=== PATIENT | female | born 2000 | race Two or more races ===

== ENCOUNTER 2023-09-08 14:45 | Emergency (ER) | payer BC, SELFPAY ==
[2023-09-08 14:58] VITALS: BP 138/76; PULSE 101; RESP 18; TEMP 37.1; O2SAT 100; BMI 24.8
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
[2023-09-08 15:35] LABS: Bilirubin Urine NEGATIVE (NEGATIVE); Blood Urine NEGATIVE (NEGATIVE); Clarity Urine CLEAR (CLEAR); Color Urine LT. YELLOW (YELLOW); Glucose Urine UA NEGATIVE (NEGATIVE); Ketones Urine NEGATIVE (NEGATIVE); Leukocyte Esterase Urine SMALL (NEGATIVE); Nitrite Urine NEGATIVE (NEGATIVE); Protein Urine NEGATIVE (NEG/TRACE); Specific Gravity Urine 1.015 (1.005-1.025); Urine Microscopic Indicated YES; Urobilinogen Urine 0.2 EU/dL (0.2-1.0)
[2023-09-08 15:37] LABS: HCG Qualitative Urine* NEGATIVE (NEGATIVE)
[2023-09-08 15:45] LABS: Amorphous Sediment Urine FEW; Bacteria Urine SMALL #/HPF (NONE SEEN); Cast Seen? NONE SEEN #/LPF (NONE SEEN); Crystals Seen? Seen #/HPF (None Seen); Mucus Urine NONE SEEN (NONE SEEN); RBC Urine 0-2 #/HPF (0-2); Squamous Epithelial Cell Urine FEW #/LPF (NONE/RARE); Urine Culture Indicated YES
[2023-09-08 17:08] VITALS: BP 130/61; PULSE 64; RESP 18; O2SAT 98
[2023-09-12 20:08] LABS: Neisseria gonorrhoeae, NAA Positive (Negative)
--- NOTE | 2023-09-17 14:27 | PC.NURSE ---
Attempted to return call and mailbox has not been set up at this time.
== END 2023-09-08 17:10 | disposition home or self-care (01) ==
PROVIDERS: Emergency Provider Emergency Medicine Emergency Medical Services
DX: R10.2 Pelvic and perineal pain (principal); F17.210 Nicotine dependence, cigarettes, uncomplicated
CPT/HCPCS: 81001; 84703; 87070; 87086; 87150; 87186; 87210; 87491; 87591; 99284

== ENCOUNTER 2024-09-04 11:21 | Emergency (ER) | payer BC, OTHER, SELFPAY ==
[2024-09-04 11:28] VITALS: BP 136/84; PULSE 85; TEMP 36.9; O2SAT 99; BMI 25.2
--- NOTE | 2024-09-04 11:36 | XR_ITS ---
The [address] [address] Patient Name: BALDEMAR CASANOVA MRN: [id number] date: 2000 Sex: F Assigned Patient Location: ER Current Patient Location: ED.MAIN Accession/Order Number: [id number] Exam Date: 09/04/2024 11:40 Report Date: 09/04/2024 12:22 At the request of: CORINA MACK Procedure: XR chest 2V EXAMINATION: XR chest 2V HISTORY: SOB COMPARISON: No relevant comparison available. TECHNIQUE: PA and lateral FINDINGS: LUNGS: No significant pulmonary parenchymal abnormalities. VASCULATURE: No increased pulmonary vasculature. PLEURA: No pneumothorax, effusion, or pleural thickening. CARDIAC: No cardiomegaly or cardiac silhouette abnormality. MEDIASTINUM: No visible mass or adenopathy. BONES: No fracture or visible bone lesion. OTHER: Negative. XR/XR chest 2V IMPRESSION: No acute cardiopulmonary process Electronically authenticated by: GRISELDA MARQUEZ Date: 09/04/2024 12:22
[2024-09-04 12:00] LABS: Internal Control Within Normal Limits; SARS-CoV-2 Ag NEGATIVE (NEGATIVE)
[2024-09-04 12:01] LABS: Influenza Virus A Antigen Negative; Influenza Virus B Antigen Negative; Internal Control Within Normal Limits
[2024-09-04 12:30] VITALS: BP 128/88; PULSE 78; O2SAT 98
--- OUTSIDE RECORDS SUMMARY | 2024-09-04 12:34 | XMS_ITS | CCD ---
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, NITO BLOOM Consulting Unavailabl e FAMILY, [facility] Primary Care Unavaila harrison ROLLE, DR ANTHONY Hughes Admitting Unavailabl e AQUILINO, DR ANTHONY Hughes Attending Unavailabl dima ROLLE, DR ANTHONY Hughes Consulting Unavailabl Romero Vega Attending Unavailable NO FAMILY, PHYSICIAN Primary Care Provider Unava ilable DO Jorge Luis Lucio Emergency Provider [phone] NO FAMILY, PHYSICIAN Primary Care Unavailable Jorge Luis Lucio Admitting Unavailable Jorge Luis Lucio Attending Unavailable Singh Preciado Admitting Unavailable Singh Preciado Attending Unavailable NO FAMILY, PHYSICIAN Primary Care Unavailable Medications Current Medications Medication Drug Class(es) Dates Sig (Normalized) Sig (Original) erythromycin 0.005 mg/mg ophthalmic ointment (1 source) Macrolide, Macrolide Antimicrobial Start: 03-21-2024 Erythromycin Active 1 APPLIC EYE-LEFT Every 6 hours 3.5 10 March 21, 2024 12:00am fluticasone propionate 0.05 mg/actuat metered dose nasal spray (1 source) Corticosteroid Start: 06-17-2022 take 1 spray(s) nasal route twice daily Fluticasone Propionate 50 MCG/ACT 1 spray in each nostril Nasally Twice a day for 14 days Jun, Active lidocaine hydrochloride 20 mg/ml mucous membrane topical solution (1 source) Antiarrhythmic, Amide Local Anesthetic Start: 06-17-2022 take 10 mL by mouth every three hours Lidocaine Viscous 2% 10 ml swish in mouth, gargle, and spit. DO NOT swallow every 3 hrs for 2 days Jun, Active Completed/Discontinued Medications Medication Drug Class(es) Dates Sig (Normalized) Sig (Original) amoxicillin 500 mg oral capsule (2 sources) Penicillin-class Antibacterial Start: 10-19-2023 End: 03-21-2024 take 500 mg by mouth twice daily Amoxicillin Discontinued 500 MG PO Twice daily 04 08October 19, 2023 1:00am March 21, 2024 10:06am cyclobenzaprine hydrochloride 10 mg oral tablet (4 sources) Muscle Relaxant Start: 04-20-2022 End: 09-19-2022 take 10 mg by mouth three times daily Cyclobenzaprine Discontinued 10 MG PO Three times daily April 20, 2022 12:00am September 19, 2022 12:40pm ibuprofen 600 mg oral tablet (3 sources) Nonsteroidal Anti-inflammatory Drug Start: 09-19-2022 End: 03-21-2024 take 600 mg by mouth three times daily Ibuprofen Discontinued 600 MG PO Three times daily September 19, 2022 1:50pm March 21, 2024 10:06am ketorolac tromethamine 10 mg oral tablet (4 sources) Nonsteroidal Anti-inflammatory Drug, Cyclooxygenase Inhibitor Start: 04-20-2022 End: 09-19-2022 take 10 mg by mouth every six hours Ketorolac Discontinued 10 MG PO Q6H April 20, 2022 12:00am September 19, 2022 12:40pm sulfamethoxazole 800 mg / trimethoprim 160 mg oral tablet (8 sources) Dihydrofolate Reductase Inhibitor Antibacterial, Sulfonamide Antimicrobial Start: 11-12-2019 End: 06-22-2021 take 1 tablet by mouth twice daily Sulfamethoxazole-Tr imethoprim (Bactrim Ds) 800-160 mg tablet Discontinued 1 TAB PO Twice daily 28 04November 12, 2019 1:00am June 22, 2021 2:45pm Start: 07-15-2017 End: 05-28-2019 take 1 tablet by mouth twice daily Sulfamethoxazole-Trimethoprim (Bactrim D s) 800-160 mg tablet Discontinued 1 TAB PO Twice daily July 15, 2017 12:00am May 28, 2019 5:34pm Problems Problem Classification Problem Date Documented Date Episodic/Chronic Abdominal pain (9 sources) Pain in pelvis; Translations: [Pelvic and perineal pain] Onset: 03-05-2023 06-01-2020 Episodic E Codes: Cut/pierceb (1 source) Contact with other sharp object(s), not elsewhere classified, initial encounter; Translations: [[facility] NOT [facility] CLASS INI] Onset: 01-12-2023 Episodic Immunizations and screening for infectious disease (2 sources) Contact with and (suspected) exposure to other viral communicable diseases; Translations: [Encounter for immunization] Onset: 06-17-2022 Resolved: 06-17-2022 Episodic Inflammatory diseases of female pelvic organs (4 sources) Acute vulvitis; Translations: [ACUTE VULVITIS] Onset: 11-27-2022 Episodic Lymphadenitis (4 sources) Inguinal lymphadenopathy; Translations: [Localized enlarged lymph nodes] 07-15-2017 Episodic Menstrual disorders (4 sources) Menstrual cramp; Translations: [Dysmenorrhea, unspecified] 05-28-2019 Chronic Nonspecific chest pain (3 sources) Chest wall pain; Translations: [Other chest pain] 09-19-2022 Episodic Open wounds of extremities (4 sources) Laceration without foreign body of right thumb without damage to nail, initial encounter; Translations: [LAC NO FB RT THUMB NO DMG NAIL INIT] Onset: 01-10-2023 Episodic Other connective tissue disease (1 source) Hand pain; Translations: [Pain in left hand] Onset: 02-27-2022 Episodic Other female genital disorders (4 sources) Vaginal bleeding; Translations: [Abnormal uterine and vaginal bleeding, unspecified] 11-26-2021 Chronic Other upper respiratory infections (7 sources) Posterior rhinorrhea; Translations: [Postnasal drip] Onset: 10-19-2023 06-22-2021 Episodic Skin and subcutaneous tissue infections (4 sources) Abscess of chin; Translations: [Cutaneous abscess of face] 11-12-2019 Episodic Spondylosis; intervertebral disc disorders; other back problems (8 sources) Low back pain; Translations: [Low back pain] 05-28-2019 Episodic Substance-related disorders (5 sources) Polysubstance abuse ; Translations: [Other psychoactive substance abuse, uncomplicated] Onset: 01-12-2023 09-02-2017 Chronic Urinary tract infections (4 sources) Urinary tract infectious disease; Translations: [Urinary tract infection, site not specified] 07-15-2017 Episodic Viral infection (5 sources) Viral infection, unspecified; Translations: [Disease caused by 2019-nCoV] Onset: 06-17-2022 Resolved: 06-17-2022 Episodic Results Test Name Value Interpretation Reference Range Facility COVID-19 / Flu A/B / RSV PCR on 10-19-2023 SARS-CoV-2 (COVID-19) RNA CARLIN+probe Ql (Unsp spec) COVID-19 Cepheid Result Negative for SARS-CoV-2 RNA by RT-PCR Flu A Cepheid Result Negative for Flu A RNA by RT-PCR Flu B Cepheid Result Negative for Flu B RNA by RT-PCR RSV Cepheid Result Negative for RSV RNA by RT-PCR COVID19 Blank Space Reference: Negative COVID19 Blank Space Cepheid Disclaimer The Cepheid Xpert Xpress CoV-2/Flu/RSV Plus has Cepheid Disclaimer not been FDA cleared or approved; this test has Cepheid Disclaimer been authorized by FDA under an EUA for use by Cepheid Disclaimer authorized laboratories; this test has been Cepheid Disclaimer authorized only for the simultaneous qualitative Cepheid Disclaimer detection and differentiation of nucleic acids from Cepheid Disclaimer SARS-CoV-2, influenza A, influenza B, and Cepheid Disclaimer respiratory syncytial virus (RSV), and not for any Cepheid Disclaimer other viruses or pathogens; and this test is only Cepheid Disclaimer authorized for the duration of the declaration that Cepheid Disclaimer circumstances exist justifying the authorization of Cepheid Disclaimer emergency use of in vitro diagnostic tests for Cepheid Disclaimer detection and/or diagnosis of COVID-19 under Cepheid Disclaimer Section 564(b)(1) of the Act, 21 U.S.C. 360bbb- Cepheid Disclaimer 3(b)(1), unless the authorization is terminated or Cepheid Disclaimer revoked sooner. PERFORMED BY: [place] [address] PATHOLOGIST POWDERED SUGAR PULVERIZER OPERATOR DOTTIE MARTINEZ M.D. [facility] Comment on above: Performed By: #### C EPHEID NEG, COVID19 FLU RSV #### [facility] [address] [place] [address] Cepheid COVID PCR Negativeon 10-19-2023 SARS-CoV-2 (COVID-19) RNA CARLIN+probe Ql (Unsp spec) Negative Normal Negative [facility] Comment on above: Result Comment: This is a duplicate Cepheid Xpert Xpress CoV-2/Flu/RSV Plus RNA by RT-PCR result to be used for statistical tracking purpose only. PERFORMED BY: [place] [address] PATHOLOGIST POWDERED SUGAR PULVERIZER OPERATOR DOTTIE MARTINEZ M.D. Performed By: #### C EPHEID NEG, COVID19 FLU RSV #### [address] Quick Strepon 10-19-2023 S. pyogenes Ag IA Ql (Unsp spec) Streptococcus pyogenes Ag [Presence] in Throat by Rapid immunoassay Positive for Group A Strep Antigen Reference range = Negative PERFORMED BY: [place] [address] PATHOLOGIST POWDERED SUGAR PULVERIZER OPERATOR DOTTIE MARTINEZ M.D. [facility] Comment on above: Performed By: #### Q S #### [facility] [address] [id number] [facility] [place] Streptococcus pyogenes antig en detectionOrdered By: Jorge Luis Lucio on 10-19-2023 S. pyogenes Ag Ql (Unsp spec) [facility] C Urineon 03-08-2023 Bacteria identified Cx Nom (U) Microbiology PROCEDURE: Urine Culture [R1] SOURCE: U CleanCatch BODY SITE: COLLECTED DATE/TIME: 03/05/2023 15:12 EDT RECEIVED DATE/TIME: 03/06/2023 07:03 EDT START DATE/TIME: 03/06/2023 07:03 EDT FREE TEXT SOURCE: Romero Britton DO, DO, Romero Judd FINAL REPORTS Final Report [] Verified Date/Time: 03/08/2023 10:37 EDT <10,000 cfu/ml Mixed skin contaminants Performing Locations R1: This test was performed at: [facility], [address] [place] [address], [address] , , [facility] Comment on above: Performed By: #### 2 [id number], [id number], [id number] #### [facility] [address] [place] [address] Prescriptions/Work Noteson 0 03-06-2023 Prescriptions/Work Notes [id number] 191#1.00CD:127 Normal [facility] Auto Diffon 03-05-2023 Basophils/100 WBC (Bld) 1.0 % Normal 0.0-2.0 [facility] Comment on above: Order Comment: Order Added by Discern Expert. Performed By: #### 2 645736, 1386742, 70060709, 1159491, 1798532, 9329936 #### [facility] [address] [place] [address] Basophils/Leukocytes Auto (Bld) [Pure # fraction] 0.1 E9/L Normal 0.0-0.2 [facility] Comment on above: Order Comment: Order Added by Discern Expert. Performed By: #### 2 845284, 7931625, 50379023, 5425906, 3910136, 7320047 #### [facility] [address] [place] [address] Eosinophils/100 WBC (Bld) 1.5 % Normal 0.0-8.0 [facility] Comment on above: Order Comment: Order Added by Discern Expert. Performed By: #### 2 691923, 5327718, 45158049, 3976409, 4062020, 6454198 #### [facility] [address] [place] [address] Eosinophils/Leukocytes Auto (Bld) [Pure # fraction] 0.1 E9/L Normal 0.0-0.5 [facility] Comment on above: Order Comment: Order Added by Osman Expert. Performed By: #### 2 727542, 8151119, 85786806, 3929599, 9040500, 7808652 #### [facility] [address] [place] [address] Lymphocytes/100 WBC (Bld) 23.6 % Normal 14.0-50.0 [facility] Comment on above: Order Comment: Order Added by Osman Expert. Performed By: #### 2 334417, 7392666, 51229580, 4138891, 7009738, 8544800 #### [facility] [address] [place] [address] Lymphocytes/Leukocytes Auto (Bld) [Pure # fraction] 2.1 E9/L Normal 1.0-4.0 [facility] Comment on above: Order Comment: Order Added by Osman Expert. Performed By: #### 2 930903, 8738058, 11282058, 7234215, 3379574, 5918223 #### [facility] [address] [place] [address] Monocytes/100 WBC (Bld) 8.5 % Normal 4.0-14.0 [facility] Comment on above: Order Comment: Order Added by Discern Expert. Performed By: #### 2 244760, 5609304, 55594950, 2522224, 6705773, 7744187 #### [facility] [address] [place] [address] Monocytes/Leukocytes Auto (Bld) [Pure # fraction] 0.8 E9/L Normal 0.2-1.0 [facility] Comment on above: Order Comment: Order Added by Discern Expert. Performed By: #### 2 526761, 2885278, 50328746, 4022713, 4124909, 2522538 #### [facility] [address] [place] [address] Neutrophils/100 WBC (Bld) 65.4 % Normal 36.0-75.0 [facility] Comment on above: Order Comment: Order Added by Discern Expert. Performed By: #### 2 592029, 2755158, 99839426, 0563045, 3381963, 2652601 #### [facility] [address] [place] [address] Neutrophils/Leukocytes Auto (Bld) [Pure # fraction] 5.7 E9/L Normal 2.0-7.5 [facility] Comment on above: Order Comment: Order Added by Discern Expert. Performed By: #### 2 449204, 7507752, 95880792, 7285642, 2578325, 9659394 #### [facility] [address] [place] [address] BMPon 03-05-2023 Creatinine [Mass/Vol] 0.9 mg/dL Normal 0.5-1.3 [facility] Comment on above: Performed By: #### 2 203970, 2387228, 05196059, 1755131, 6310713, 4404733 #### [facility] [address] [place] [address] Urea nitrogen [Mass/Vol] 10 mg/dL Normal - [facility] Comment on above: Performed By: #### 2 959746, 7874970, 21516060, 4971214, 1132024, 9538673 #### [facility] [address] [place] [address] Urea nitrogen/Creatinine [Mass ratio] 11 No Units Normal 10-20 [facility] Comment on above: Performed By: #### 2 344887, 6733209, 39391931, 3863538, 2273394, 5939200 #### [facility] [address] [place] [address] Anion gap [Moles/Vol] 10 mmol/L Normal 6-16 [facility] Comment on above: Performed By: #### 2 584768, 2165177, 49282398, 1647883, 1565429, 3980765 #### [facility] [address] [place] [address] Calcium [Mass/Vol] 9.1 mg/dL Normal 8.9-11.1 [facility] Comment on above: Performed By: #### 2 510961, 8651223, 04885762, 2342427, 9033209, 2727934 #### [facility] [address] [place] [address] Chloride [Moles/Vol] 103 mmol/L Normal 101-111 [facility] Comment on above: Performed By: #### 2 704048, 3233260, 74732684, 5095839, 6250236, 0299112 #### [facility] [address] [place] [address] CO2 [Moles/Vol] 27 mmol/L Normal 21-31 [facility] Comment on above: Performed By: #### 2 570684, 8358700, 23561934, 4368730, 0067119, 4959124 #### [facility] [address] [place] [address] Glucose [Mass/Vol] 83 mg/dL Normal 55-199 [facility] Comment on above: Result Comment: If t his glucose result represents a fasting glucose, interpretation should refer to the following reference range: 55-99 mg/dL Performed By: #### 2 121551, 8905132, 85088614, 5786000, 9778796, 5924182 #### [facility] [address] [place] [address] Potassium [Moles/Vol] 4.2 mmol/L Normal 3.5-5.3 [facility] Comment on above: Performed By: #### 2 910396, 7313570, 63910089, 5537324, 6186077, 1591053 #### [facility] [address] [place] [address] Sodium [Moles/Vol] 136 mmol/L Normal 135-145 [facility] Comment on above: Performed By: #### 2 736148, 2126681, 97499206, 7311600, 3108270, 5477337 #### [facility] [address] [place] [address] CBC w/ Auto Diffon Erythrocyte distribution width (RBC) [Ratio] 12.8 % Normal 10.9-14.2 [facility] Comment on above: Performed By: #### 2 467564, 5286575, 99271133, 6920347, 6681763, 7969016 #### [facility] [address] [place] [address] Hematocrit (Bld) [Volume fraction] 41.8 % Normal 34.0-46.0 [facility] Comment on above: Performed By: #### 2 216481, 4981485, 29410763, 0337731, 2698349, 2310683 #### [facility] [address] [place] [address] Hemoglobin (Bld) [Mass/Vol] 13.6 g/dL Normal 12.0-16.0 [facility] Comment on above: Performed By: #### 2 776109, 1405118, 49907635, 7596189, 2348418, 4348703 #### [facility] [address] [place] [address] MCH (RBC) [Entitic mass] 28.6 pg Normal 27.0-34.0 [facility] Comment on above: Performed By: #### 2 558297, 2179997, 34187062, 1030482, 5837903, 3037445 #### [facility] [address] [place] [address] MCHC (RBC) [Mass/Vol] 32.5 g/dL Normal 31.4-36.0 [facility] Comment on above: Performed By: #### 2 286535, 9071624, 13555030, 1158450, 7621798, 6436968 #### [facility] [address] [place] [address] MCV (RBC) [Entitic vol] 87.7 fL Normal 80.0-100.0 [facility] Comment on above: Performed By: #### 2 736541, 4430999, 94290361, 5332314, 3938332, 9842853 #### [facility] [address] [place] [address] Platelet mean volume (Bld) [Entitic vol] 8.2 fL Normal 6.4-10.8 [facility] Comment on above: Performed By: #### 2 839794, 4057711, 03253650, 4991010, 2842601, 7602583 #### [facility] [address] [place] [address] Platelets (Bld) [#/Vol] 321.0 E9/L Normal 150.0-500.0 [facility] Comment on above: Performed By: #### 2 164244, 1122164, 61664811, 1552988, 3382564, 3197670 #### [facility] [address] [place] [address] RBC (Bld) [#/Vol] 4.8 E12/L Normal 4.3-5.9 [facility] Comment on above: Performed By: #### 2 399104, 0196672, 48599479, 1856419, 5312565, 8494210 #### [facility] [address] [place] [address] WBC corrected for nucl RBC Auto (Bld) [#/Vol] 8.8 E9/L Normal 4.0-11.0 [facility] Comment on above: Performed By: #### 2 659985, 0027351, 51713541, 3516372, 5012901, 0222338 #### [facility] [address] [place] [address] CT Abdomen/Pelvis w/ Contras ton 03-05-2023 CT Abdomen/Pelvis w/ Contrast Exam Date/Time: 03/05/2023 17:08 EDT Reason for Exam: Pain Report IMPRESSION: No acute process in the abdomen/pelvis. Low-attenuation left adnexal region cysts measuring up to 3.0 cm. Pelvic free fluid. These findings are most likely physiologic. EXAMINATION: CT Abdomen/Pelvis w/ Contrast HISTORY: Pain. Right upper quadrant pain for 5 days TECHNIQUE: CT of the abdomen and pelvis was performed using standard technique with intravenous contrast, scanning from just above the dome of the diaphragm to the symphysis pubis. Including delayed images through the kidneys. Including sagittal and coronal reconstructions on both phases. All CT scans at this facility use dose modulation, iterative reconstruction, and/or weight based dosing when appropriate to reduce radiation dose to as low as reasonably achievable. COMPARISON: None. RESULT: Liver: No mass or lesion. Biliary: Gallbladder unremarkable. No biliary ductal dilation. Pancreas: No mass or duct dilation. Spleen: No mass or splenomegaly. Adrenals: No mass. Kidneys: No mass, calculus or hydronephrosis. Delayed phase imaging with normal excreted contrast in the renal collecting system, ureters, and bladder. GI tract: No dilation or wall thickening. Lymph nodes: No abdominal or pelvic lymphadenopathy. Mesentery/Peritoneu m/Retroperitoneum: No ascites or mass. Vasculature: The celiac axis and SMA are patent. The portal vein and branches, splenic vein, SMV, and hepatic veins are patent. No abdominal aortic or iliac artery Report aneurysm. Pelvis: Low-attenuation left adnexal region cysts with the largest measuring around 3.0 cm. Small to moderate volume free fluid. Uterus grossly unremarkable. Bladder partially decompressed. Bones: No acute osseous findings. Soft tissues: Unremarkable. Lower thorax: Unremarkable. Ordering Provider: Cynthia May FINAL REPORT Dictated: 03/05/2023 5:25 pm Amrit Batista MD Signed (Electronic Signature): 03/05/2023 5:25 pm Signed by: Amrit Batista MD Transcribed by: BLANCA Technologist: ISABELA Technical Comments GFR (mL/min/1/73m2) n/a age Contrast: Isovue 300 Contrast amount in ml's: 100 Normal [facility] Consent for Treatmenton 02-14 Consent for Treatment [id number] [id number]#1.00CD:127 Normal [facility] Discharge Instructionson Discharge Instructions [id number]#1.00CD:127 Normal [facility] ED Clinical Summaryon 2022 ED Clinical Summary [place] [id number] ED Clinical Summary Person Information Name: BALDEMAR CASANOVA [facility] Age: 23 Years : 2000 Sex: Female Language: Danish PCP: LAILA GREGG DO Marital Status: Single Visit Id: Visit Reason: Abdominal pain; PAIN IN THE RIGHT SIDE OF ABD Speciality: Acuity: 3 Enc Type: Emergency Med Service: Emergency Arrival: 03/05/2023 14:47:11 Discharge: 03/05/2023 18:04:55 LOS: 000 03:17 Checkin: 03/05/2023 14:47:11 Checkout: 03/05/2023 18:04:55 Dispo Type: Home (Routine DC) EVENTS: Event Name Event Status Request Date/Time Start Date/Time Complete Date/Time Arrive Complete 03/05/2023 14:47:11 03/05/2023 14:47:11 03/05/2023 14:47:11 Document Home Meds Request 03/05/2023 14:47:11 Triage Complete 03/05/2023 14:47:11 03/05/2023 15:08:52 03/05/2023 15:08:52 Registration Complete 03/05/2023 14:49:53 03/05/2023 14:49:53 03/05/2023 14:49:53 Reg Complete Request 03/05/2023 14:49:53 Reg Bed Request Complete 03/05/2023 14:49:53 03/05/2023 14:49:53 03/05/2023 14:49:53 Pending Labs Complete 03/05/2023 15:09:44 03/05/2023 16:15:23 Lab Complete 03/05/2023 15:09:44 03/05/2023 16:15:23 Urine Collect Complete 03/05/2023 15:09:44 03/05/2023 16:15:23 Pending Labs Complete 03/05/2023 15:22:29 03/05/2023 15:22:29 03/05/2023 15:43:12 Lab Complete 03/05/2023 15:22:29 03/05/2023 15:22:29 03/05/2023 15:43:12 Pending Labs Complete 03/05/2023 15:26:01 03/05/2023 15:26:01 03/05/2023 15:26:08 Lab Complete 03/05/2023 15:26:01 03/05/2023 15:26:01 03/05/2023 15:26:08 Bed Assign Complete 03/05/2023 15:52:08 03/05/2023 15:52:08 03/05/2023 15:52:08 Dr Exam Complete 03/05/2023 15:52:08 03/05/2023 16:01:18 03/05/2023 16:01:18 RN Exam Complete 03/05/2023 15:52:08 03/05/2023 16:00:49 03/05/2023 16:00:49 Registration Request 03/05/2023 16:01:18 Dr Exam Complete 03/05/2023 16:02:37 03/05/2023 16:02:37 03/05/2023 16:02:37 Pending Labs Collected 03/05/2023 16:15:23 03/05/2023 16:15:23 Lab Collected 03/05/2023 16:15:23 03/05/2023 16:15:23 Meds Admin Complete 03/05/2023 16:32:18 03/05/2023 16:45:36 CT Complete 03/05/2023 16:32:18 03/05/2023 16:58:45 03/05/2023 17:08:24 Pending Labs Complete 03/05/2023 16:57:01 03/05/2023 16:57:01 03/05/2023 16:57:02 Pending Labs Complete 03/05/2023 16:57:14 03/05/2023 16:57:14 03/05/2023 16:57:15 Discharge Complete 03/05/2023 17:51:18 03/05/2023 18:05:00 03/05/2023 18:05:00 Transfer Complete 03/05/2023 18:05:00 03/05/2023 18:05:00 03/05/2023 18:05:00 ADDRESS: [address] [place] [phone] [facility] DOC NOTES: MEDICAL INFORMATION: Prescriptions Given: PATIENT EDUCATION INFORMATION: Instructions: Abdominal Pain, Adult, [id number] Follow up: With: Address: When: MARYSOL MARRUFO, LAILA Hussein, [address] [address] In 3 days 03/08/2023 DIAGNOSIS: 1:Abdominal pain in female; 2:Ovarian cyst Normal [facility] ED Note-Physicianon 03-05-20 ED Note-Physician Basic Information Time Seen: Cynthia May PA-C 03/05/2023 16:01 Chief Complaint RUQ abd. pain x 5 days. denies N/V. denies chance of . denies urinary changes. History of Present Illness Patient is a 23-year-old female denies any significant prior medical history presents the ED with her sister for evaluation of abdominal pain x5 days. She said initially the thought was her menstrual cramps because her menstrual cycle just ended a couple of days ago but its not gotten any better. She said it started around her bellybutton and has now moved to her right lower quadrant. She said she feels better when her abdomen is crunched over . She says when she expands to breathe it hurts worse. She endorses occasional vaginal discharge. Denies chance of STDs. She denies dysuria, hematuria. Last bowel movement yesterday was normal, nonbloody. She still has gallbladder and appendix. Denies any chest pain, shortness of breath, fever, chills, nausea, vomiting, diarrhea. No sick contacts. Review of Systems A 10 point review of systems is negative except as noted above. Medical and Surgical History: Reviewed and noted Social history: Lives at home Substance use: Denies tobacco use, occasional alcohol use Physical Exam Vitals & Measurements T: 36.7 ?C(Oral) HR: 68(Peripheral) RR: 16 BP: 116/69 SpO2: 100% HT: 157 cm WT: 62 kg BMI: 25.15 Appearance: Well-developed, nontoxic-appearing, alert and awake. Speaking in complete sentences. Calm. Cooperative. Vital signs reviewed, WNL Skin: Warm, dry, intact. Normal for age and ethnicity. No ecchymosis, open wounds, or rashes. Eyes: PERRL. Vision grossly intact. Respiratory: LCTA b/l with normal bilateral excursion. No wheezes, rhonchi, rales. Cardiovascular: RRR, no murmurs. 2+ symmetrical radial and dorsalis pedis pulses. Normal cap refill. No LE edema. Chest wall: Normal chest wall appearance and motion. Abdomen/GI: Tender RLQ. Negative Nunez, negative obturator, negative Rovsing. Soft, nondistended. No guarding, rigidity, rebound tenderness. NABS x4. : Not examined Neuro: Alert and awake, speech Clear, cranial nerves grossly intact. Extremities: No deformity noted on exam. Patient spontaneously moves all 4 extremities. Medical Decision Making Limitations to history: None Nursing Notes: Reviewed and utilized the nursing notes. Previous records reviewed: MDM: Patient is a 23-year-old female presents to the ED for evaluation of abdominal pain that began in her epigastrium is migrated to the right lower quadrant. On exam she has negative Rovsing, negative obturator, negative Nunez sign. Considered appendicitis however I feel it may be unlikely because her pain is insidious and she has nonfocal abdominal exam with no abdominal tenderness, guarding or rebound tenderness. DDx includes, but is not limited to, ovarian cyst, cystitis, pyelonephritis, cholecystitis. Considered ovarian torsion, will obtain CT abdomen pelvis and if necessary call ultrasound in. I personally reviewed lab work. Labs unremarkable. Trace bacteria and mucus on UA however nitrite negative and suspect contamination with squamous skin cells. CT negative for any acute findings abdomen pelvis. Shows 3 cm left-sided ovarian cyst. Discussed lab and imaging findings with patient. She states that pain has improved. Social Determinants of Health Affecting Care: None RX Considerations: None Discussions with other providers: Appropriate for: Outpatient management Assessment/Plan 1. Abdominal pain in female (R10.9: Unspecified abdominal pain) 2. Ovarian cyst (N83.209: Unspecified ovarian cyst, unspecified side) Orders: ketorolac, 30 mg = 1 mL, Injection, IV Push, Once, Stop date 03/05/23 16:30:00 EDT, STAT, Start date 03/05/23 16:30:00 EDT, 03/05/23 16:30:00 EDT ondansetron, 4 mg = 2 mL, Injection, IV Push, Once, Stop date 03/05/23 16:31:00 EDT, STAT, Start date 03/05/23 16:31:00 EDT, 03/05/23 16:31:[address] Abdomen/Pelvis w/ Contrast Medications Administered Given ketorolac 30 mg/mL Inj 1 mL, 30 mg, IV Push Zofran 4 mg/2 mL Injection, 4 mg, IV Push Disposition Plan Patient Discharge Condition Improved Discharge Disposition Home Discharge Prescription List Prescriptions No active prescription medications Follow-up With When Contact Information LAILA GREGG DO, FAM In 3 days 03/08/[address] [facility] [address] [place] [address]- Additional Instructions: Additional Instructions: Call the office of your primary care doctor to arrange for follow-up within the above-stated timeframe. Follow-up with your primary care doctor about this ED visit. You should review your labs, imaging, and diagnoses from this ED visit with your primary care physician. If you were prescribed medications you should discuss possible side-effects and drug interactions with your pharmacist. Call 911 or go to the nearest Emergency Department if you develop any new or worsening symptoms. Patient Education (more content not included)... Normal [facility] Comment on above: Result Comment: Elec tronically Signed By: Cynthia May PA-C.\.br\Date and Time Signed: 03/05/23 17:51 EDT\.br\Electronically Co-Signed By: Romero Britton DO\.br\Date and Time Co-Signed: 03/05/23 19:35 EDT ED Patient Education Noteon 03-05-2023 ED Patient Education Note Gastroenterology Abdominal Pain, Adult Many things can cause belly (abdominal) pain. Most times, belly pain is not dangerous. Many cases of belly pain can be watched and treated at home. Sometimes, though, belly pain is serious. Your doctor will try to find the cause of your belly pain. Follow these instructions at home: Medicines ? Take jtvv-zwq-tdtwfqh and prescription medicines only as told by your doctor. ? Do not take medicines that help you poop (laxatives) unless told by your doctor. General instructions ? Watch your belly pain for any changes. ? Drink enough fluid to keep your pee (urine) pale yellow. ? Keep all follow-up visits as told by your doctor. This is important. Contact a doctor if: ? Your belly pain changes or gets worse. ? You are not hungry, or you lose weight without trying. ? You are having trouble pooping (constipated) or have watery poop (diarrhea) for more than 2?3 days. ? You have pain when you pee or poop. ? Your belly pain wakes you up at night. ? Your pain gets worse with meals, after eating, or with certain foods. ? You are vomiting and cannot keep anything down. ? You have a fever. ? You have blood in your pee. Get help right away if: ? Your pain does not go away as soon as your doctor says it should. ? You cannot stop vomiting. ? Your pain is only in areas of your belly, such as the right side or the left lower part of the belly. ? You have bloody or black poop, or poop that looks like tar. ? You have very bad pain, cramping, or bloating in your belly. ? You have signs of not having enough fluid or water in your body (dehydration), such as: ? Dark pee, very little pee, or no pee. ? Cracked lips. ? Dry mouth. ? Sunken eyes. ? Sleepiness. ? Weakness. ? You have trouble breathing or chest pain. Summary ? Many cases of belly pain can be watched and treated at home. ? Watch your belly pain for any changes. ? Take bhmz-yfa-kwpcyxl and prescription medicines only as told by your doctor. ? Contact a doctor if your belly pain changes or gets worse. ? Get help right away if you have very bad pain, cramping, or bloating in your belly. This information is not intended to replace advice given to you by your health care provider. Make sure you discuss any questions you have with your health care provider. Document Revised: 02/10/2020 Document Reviewed: 02/10/2020 Elsevier Patient Education ? 2022 [employer]. Normal [facility] ED Patient Summaryon 023 ED Patient Summary [address] [address] Patient Discharge Instructions Person Information Name: BALDEMAR CASANOVA Age: 23 Years Arrival Date: 03/05/2023 14:47:11 Discharge Diagnosis: 1:Abdominal pain in female; 2:Ovarian cyst Primary Care Physician: LAILA GREGG DO Provider Information Primary Provider: Romero Britton DO [employer] Rep[employer] Technician:Cynthia May PA-C The exam and treatment you received in the Emergency Department were for an urgent problem and are not intended as complete care. It is important that you follow up with a doctor, nurse practitioner, or physician?s roofer assistant for ongoing care. If your symptoms become worse or you do not improve as expected and you are unable to reach your usual health care provider, you should return to the Emergency Department. We are available 24 hours a day. BALDEMAR CASANOVA has been given the following list of patient education materials, prescriptions and follow-up instructions: Follow-up Instructions: With: Address: When: LAILA GREGG DO, [address] [address] In 3 days 03/08/2023 In the event that this physician does not participate in your insurance network, please consult with your insurance company to find a nearby participating provider. Patient Education Materials: Abdominal Pain, Adult, Gjzm-rt-Rhwk A MESSAGE TO ALL PATIENTS REGARDING OPIOIDS PRESCRIPTION OPIOIDS: WHAT YOU NEED TO KNOW Prescription opioids can be used to help relieve mpiqbeue-nn-noxvoo pain and are often prescribed following a surgery or injury, or for certain health conditions. These medications can be an important part of the treatment but also come with serious risks. It is important to work with your healthcare provider to make sure you are getting the safest, most effective care. WHAT ARE THE RISKS AND SIDE EFFECTS OF OPIOID USE? Prescription opioids carry serious risks of addiction and overdose, especially with prolonged use. An opioid overdose, often marked by slowed breathing, can cause sudden . The use of prescription opioids can have a number of side effects as well, even when taken as directed: ? Tolerance?meaning you might need to take more of the medication for the same pain relief ? Physical dependence?meaning you have symptoms of withdrawal when a medication is stopped ? Increased sensitivity to pain ? Constipation ? Nausea, vomiting, and dry mouth ? Sleepiness and dizziness ? Confusion ? Depression ? Low levels of testosterone that can result in lower sex drive, energy, and strength ? Itching and sweating RISKS ARE GREATER WITH: ? History of drug misuse, substance use disorder, or overdose ? Mental health conditions (such as depression or anxiety) ? Sleep apnea ? Older age (65 years and older) ? Avoid alcohol while taking prescription opioids. Also, unless specifically advised by your health care provider, medications to avoid include: ? Benzodiazepines (such as Xanax or Valium) ? Muscle relaxants (such as Soma or Flexeril) ? Hypnotics (such as Ambien or Lunesta) ? Other prescription opioids KNOW YOUR OPTIONS Talk to your health care provider about ways to manage your pain that don?t involve prescription opioids. Some of these options may actually work better and have fewer risks and side effects. Options may include: ? Pain relievers such as acetaminophen, ibuprofen, and naproxen ? Some medication that are also used for depression or seizures ? Physical therapy and exercise ? Cognitive behavioral therapy, a psychological, goal-directed approach, in which patients learn how to modify physical, behavioral, and emotional triggers of pain and stress. IF YOU ARE PRESCRIBED OPIOIDS FOR PAIN: ? Never take opioids in greater amounts or more often than prescribed. ? Follow up with your primary health care provider. o Work together to create a plan on how to manage your pain. o Talk about ways to help manage your pain that don?t involve prescription opioids. o Talk about any and all concerns and side effects. ? Help prevent misuse and abuse o Never sell or share prescription opioids. o Never use another person?s prescription opioids. ? Store prescription opioids in a secure place and out of reach of others (this may include visitors, children, friends, and family). ? Safely dispose of unused prescription opioids: Find your community drug take-back program or your pharmacy mail-back program, or flush them down the toilet, following guidance from the Food and Drug Administration (www.fda.gov/Drugs/ ResourcesForYou). ? Visit www.cdc.gov/drugove rdose to learn about the risks of opioids abuse and overdose. ? If you believe you may be struggling with addiction, tell your health wound care coordinator and ask for guidance or call [facility]?S National Helpline at 9-80 (more content not included)... Normal [facility] Hep Func Panelon 03-05-2023 Albumin [Mass/Vol] 4.2 g/dL Normal 3.3-5.0 [facility] Comment on above: Performed By: #### 2 067073, 1520952, 87181086, 1140561, 8457584, 6666357 #### [facility] [address] [place] [address] Albumin/Globulin (S) [Mass conc ratio] 1.2 Normal 1.1-2.2 [facility] Comment on above: Performed By: #### 2 111518, 6856875, 96677711, 6125351, 3246825, 4350853 #### [facility] [address] [place] [address] ALP [Catalytic activity/Vol] 61 Int._Unit/L Normal 21-98 [facility] Comment on above: Performed By: #### 2 085721, 4734412, 33562909, 5359081, 4564663, 9214135 #### [facility] [address] [place] [address] ALT No additional P-5'-P [Catalytic activity/Vol] 13 Int._Unit/L Normal 6-46 [facility] Comment on above: Performed By: #### 2 082104, 4649358, 92432969, 5961352, 2460321, 8960288 #### [facility] [address] [place] [address] AST [Catalytic activity/Vol] 18 Int._Unit/L Normal 5-43 [facility] Comment on above: Performed By: #### 2 917900, 1209062, 09969315, 1621613, 9524402, 2355651 #### [facility] [address] [place] [address] Bilirubin [Mass/Vol] 0.9 mg/dL Normal 0.0-1.1 [facility] Comment on above: Performed By: #### 2 396628, 3324430, 45690785, 8223335, 4163324, 1244254 #### [facility] [address] [place] [address] Bilirubin.direct [Mass/Vol] 0.1 mg/dL Normal 0.1-0.4 [facility] Comment on above: Performed By: #### 2 210258, 7540884, 77880441, 8918955, 3026817, 7261765 #### [facility] [address] [place] [address] Bilirubin.indirect [Mass or moles/Vol] 0.8 mg/dL Normal 0.1-0.9 [facility] Comment on above: Performed By: #### 2 694376, 8939596, 95040545, 9219060, 6963773, 7104406 #### [facility] [address] [place] [address] Globulin (S) [Mass/Vol] 3.4 g/dL Normal 1.4-4.0 [facility] Comment on above: Performed By: #### 2 773343, 4698970, 93900158, 5872342, 0297006, 8549802 #### [facility] [address] [place] [address] Protein [Mass/Vol] 7.6 g/dL Normal 6.0-7.8 [facility] Comment on above: Performed By: #### 2 302315, 4366318, 08971229, 1331117, 3882130, 2675288 #### [facility] [address] [place] [address] Lipase Levelon 03-05-2023 Lipase [Catalytic activity/Vol] 22 U/L Normal 13-58 [facility] Comment on above: Performed By: #### 2 161879, 5251201, 65518959, 5151906, 7826399, 6910938 #### [facility] [address] [place] [address] U BetaHcg Qualon 03-05-2023 HCG.beta subunit (U) [Moles/Vol] Negative Normal [facility] Comment on above: Performed By: #### 2 302057, 71345984, 74128034 #### [facility] [address] [place] [address] UA With Cult Reflexon 2022 Bacteria LM Ql (Urine sed) 1+ /HPF Abnormal Trace [facility] Comment on above: Performed By: #### 2 995457, 94724212, 11826851 #### [facility] [address] [place] [address] Epithelial cells.squamous LM.HPF (Urine sed) [#/Area] /[HPF] Normal 0-2 [facility] Comment on above: Performed By: #### 2 494690, 91680558, 50228564 #### [facility] [address] [place] [address] [place].plasma/[place] .RBC (Bld) [Mass ratio] 0-3 Normal 0-3 [facility] Comment on above: Performed By: #### 2 246275, 90507403, 11612204 #### [facility] [address] [place] [address] Mucus Ql (Urine sed) 1+ Normal [facility] Comment on above: Performed By: #### 2 937572, 99295591, 64199654 #### [facility] [address] [place] [address] WBC LM.HPF (Urine sed) [#/Area] 6-15 Abnormal 0-5 [facility] Comment on above: Performed By: #### 2 209659, 38652133, 16109147 #### [facility] [address] [place] [address] Bilirubin Ql (U) Negative Normal Negative [facility] Comment on above: Performed By: #### 2 183430, 19340589, 00165310 #### [facility] [address] [place] [address] Clarity (U) CLEAR Normal Clear [facility] Comment on above: Performed By: #### 2 033062, 01241025, 42092230 #### [facility] [address] [place] [address] Color (U) YELLOW Normal Yellow [facility] Comment on above: Performed By: #### 2 087964, 27082868, 22431547 #### [facility] [address] [place] [address] Glucose Test strip (U) [Mass/Vol] Negative Normal Negative [facility] Comment on above: Performed By: #### 2 375079, 17911123, 48500258 #### [facility] [address] [place] [address] Hemoglobin Ql (U) Negative Normal Negative [facility] Comment on above: Performed By: #### 2 254356, 89278779, 85741178 #### [facility] [address] [place] [address] Ketones (U) [Mass/Vol] 1+ Abnormal Negative [facility] Comment on above: Performed By: #### 2 610356, 99977032, 02341623 #### [facility] [address] [place] [address] Nitrite Ql (U) Negative Normal Negative [facility] Comment on above: Performed By: #### 2 279496, 78031304, 63481668 #### [facility] [address] [place] [address] pH (U) 7.0 [pH] Invalid Interpretation Code 5.0-9.0 [facility] Comment on above: Performed By: #### 2 541224, 01226045, 29594851 #### [facility] [address] [place] [address] Protein (U) [Mass/Vol] Negative Normal Negative [facility] Comment on above: Performed By: #### 2 162344, 84439772, 97992760 #### [facility] [address] [place], [place] [address] Specific gravity (U) [Rel density] 1.020 Invalid Interpretation Code 1.005-1.030 [facility] Comment on above: Performed By: #### 2 127692, 58822161, 93672615 #### [facility] [address] [place], [place] [address] Type of Urine collection method Clean Catch Normal [facility] Comment on above: Performed By: #### 2 133370, 70768210, 73026351 #### [facility] [address] [place] [address] Urobilinogen Qn (U) 0.2 {Tiara'U}/dL Normal 0.0-1.0 [facility] Comment on above: Performed By: #### 2 838373, 60993136, 25886701 #### [facility] [address] [place] [address] WBC Auto Ql (U) TRACE Abnormal Negative [facility] Comment on above: Performed By: #### 2 534936, 12419540, 13932743 #### [facility] [address] [place] [address] eGFRon 03-05-2023 GFR/1.73 sq M.predicted among non-blacks MDRD (S/P/Bld) [Vol rate/Area] 93 mL/min/1.73 m2 Normal >=59 [facility] Comment on above: Order Comment: Order added by Discern Expert. Result Comment: Injection Wax Molder vik kidney disease could be indicated at eGFR's of less than 60 mL/min/1.73m2. Kidney failure is indicated at less than 15 mL/min/1.73m2. Performed By: #### 2 524169, 1750324, 16683054, 5831073, 3536228, 5830955 ####[facility] [id number] [place] [address] CULTURE WOUNDon 11-27-2022 CULTURE WOUND Culture Observations: LIGHT GROWTH OF MIXED SKIN JUNE. NO POTENTIAL PATHOGENS SEEN. Culture Observations: NO GROWTH OF ANAEROBES AT 72 HOURS. Normal [facility] Comment on above: Performed By: #### W OUNDCX #### [facility] [place] [facility] [address] [place], [place] [address] Dr. Luisana Farnsworth Bilirubin Test strip Ql (U)O rdered By: Sharona King on 07-04-2022 Bilirubin Ql (U) Negative Negative [facility] COVID-19 SOFIAOrdered By: Anna King on 07-04-2022 SARS-CoV+SARS-CoV-2 (COVID-19) Ag IA.rapid Ql (Resp) Positive Negative [facility] Comment on above: This is a duplicate Marcia SARS Antigen (PEDRO) result to be used for statistical tracking purpose only. Color Auto (U)Ordered By: Anna King on 07-04-2022 Color (U) Yellow Yellow [facility] HCG ( test) IA.rapi d Ql (U)Ordered By: Sharona King on 07-04-2022 HCG ( test) Ql (U) Negative [facility] Ketones Auto test strip (U) [Mass/Vol]Ordered By: Sharona King on 07-04-2022 Ketones (U) [Mass/Vol] 2+ Negative Fi [facility] Nitrite Test strip Ql (U)Ord ered By: Sharona King on 07-04-2022 Nitrite Ql (U) Negative Negative [facility] No Panel InformationOrdered By: Sharona King on 07-04-2022 SARS Antigen (LFIA) [facility] Protein Auto test strip (U) [Mass/Vol]Ordered By: Sharona King on 07-04-2022 Protein (U) [Mass/Vol] Negative Negative [facility] Specific gravity Auto test s trip (U) [Rel density]Ordered By: Sharona King on 07-04-2022 Specific gravity (U) [Rel density] 1.019 1.001-1.030 [facility] Urine clarity by refractomet ry automatedOrdered By: Sharona King on 07-04-2022 Clarity Refractometry automated (U) Clear Clear [facility] Urine glucose measurement by automated test strip (mass/volume)Ordered By: Sharona King on 07-04-2022 Glucose Auto test strip (U) [Mass/Vol] Normal mg/dL Normal [facility] Urine hemoglobin detection b y automated test stripOrdered By: Sharona King on 07-04-2022 Hemoglobin Auto test strip Ql (U) Negative Negative [facility] Urine leukocyte esterase det ection by automated test stripOrdered By: Sharona King on 07-04-2022 Leukocyte esterase Auto test strip Ql (U) Negative Negative [facility] Urobilinogen Auto test strip (U) [Mass/Vol]Ordered By: Sharona King on 07-04-2022 Urobilinogen (U) [Mass/Vol] Normal mg/dL Normal [facility] pH Auto test strip (U)Ordere d By: Sharona King on 07-04-2022 pH (U) 6.5 [pH] 5.0-9.0 [facility] SARS-CoV-2 (COVID-19) RNA NA A+probe Ql (Resp)on 06-17-2022 SARS-CoV-2 (COVID-19) RNA CARLIN+probe Ql (Unsp spec) Negative [facility] Other Vital Signs Date Time Vital Sign Value Performing Clinician Facility 03-21-2024 10:05-0400 Body height 157.48 cm [facility] 03-21-2024 10:05-0400 Body mass index (BMI) [Ratio] 24.7 kg/m2 [facility] 03-21-2024 10:05-0400 Body temperature 98.4 [degF] [facility] 03-21-2024 10:05-0400 Body weight 61.23 kg [facility] 03-21-2024 10:05-0400 Diastolic blood pressure 73 mm[Hg] [facility] 03-21-2024 10:05-0400 Heart rate 78 /min [facility] 03-21-2024 10:05-0400 SaO2% (BldA) [Mass fraction] 98 % [facility] 03-21-2024 10:05-0400 Systolic blood pressure 109 mm[Hg] [facility] 10-19-2023 07:26-0500 Body height 158.75 cm PHYSICIAN NO [facility] [place] [facility] 10-19-2023 07:26-0500 Body temperature 99.7 [degF] PHYSICIAN NO [facility] 10-19-2023 07:26-0500 Body weight 63.25 kg [facility] [place] [facility] [facility] 07:26-0500 Diastolic blood pressure 77 mm[Hg] PHYSICIAN NO [facility] 10-19-2023 07:26-0500 Heart rate 123 /min PHYSICIAN NO [facility] 10-19-2023 07:26-0500 Respiratory rate 16 /min PHYSICIAN NO [facility] 10-19-2023 07:26-0500 SaO2% (BldA) [Mass fraction] 97 % PHYSICIAN NO [facility] 10-19-2023 07:26-0500 Systolic blood pressure 125 mm[Hg] PHYSICIAN NO [facility] 09-19-2022 11:42-0500 Body temperature 98 [degF] PHYSICIAN NO [facility] 09-19-2022 11:42-0500 Diastolic blood pressure 61 mm[Hg] PHYSICIAN NO [facility] 09-19-2022 11:42-0500 Heart rate 85 /min PHYSICIAN NO [facility] 09-19-2022 11:42-0500 Respiratory rate 18 /min PHYSICIAN NO [facility] 09-19-2022 11:42-0500 SaO2% (BldA) [Mass fraction] 100 % PHYSICIAN NO [facility] 09-19-2022 11:42-0500 Systolic blood pressure 127 mm[Hg] PHYSICIAN NO [facility] 09-19-2022 11:40-0500 Body height 160.02 cm PHYSICIAN NO [facility] 09-19-2022 11:40-0500 Body weight 59.1 kg PHYSICIAN NO [facility] 07-04-2022 16:15-0400 Body temperature 98.9 [degF] PHYSICIAN NO [facility] 07-04-2022 16:15-0400 Diastolic blood pressure 62 mm[Hg] PHYSICIAN NO [facility] 07-04-2022 16:15-0400 Heart rate 95 /min PHYSICIAN NO [facility] 07-04-2022 16:15-0400 Respiratory rate 18 /min PHYSICIAN NO [facility] 07-04-2022 16:15-0400 SaO2% (BldA) [Mass fraction] 96 % PHYSICIAN NO [facility] 07-04-2022 16:15-0400 Systolic blood pressure 113 mm[Hg] PHYSICIAN NO [facility] 07-04-2022 14:01-0400 Body height 127 cm PHYSICIAN NO [facility] 07-04-2022 14:01-0400 Body weight 59.9 kg PHYSICIAN NO [facility] 06-17-2022 12:15-0400 Body height 157.48 cm [place] Other [employer] Other 06-17-2022 12:15-0400 Body mass index (BMI) [Ratio] 24.69 kg/m2 [place] Other [facility] Other 06-17-2022 12:15-0400 Body temperature 98.8 [degF] [place] Other [facility] Other 06-17-2022 12:15-0400 Body weight 61.24 kg [place] Other [facility] Other 06-17-2022 12:15-0400 Respiratory rate 18 /min [place] Other [facility] Other 06-17-2022 12:15-0400 SaO2% (BldA) [Mass fraction] 99 % [place] Other [facility] Other 04-20-2022 13:11-0400 Body height 157.48 cm PHYSICIAN NO [facility] 04-20-2022 13:11-0400 Body mass index (BMI) [Ratio] 23.9 kg/m2 PHYSICIAN NO [facility] 04-20-2022 13:11-0400 Body temperature 98.3 [degF] PHYSICIAN NO [facility] 04-20-2022 13:11-0400 Body weight 59.3 kg PHYSICIAN NO [facility] 04-20-2022 13:11-0400 Diastolic blood pressure 84 mm[Hg] PHYSICIAN NO [facility] 04-20-2022 13:11-0400 Heart rate 70 /min PHYSICIAN NO [facility] 04-20-2022 13:11-0400 Respiratory rate 16 /min PHYSICIAN NO [facility] 04-20-2022 13:11-0400 SaO2% (BldA) [Mass fraction] 98 % PHYSICIAN NO [facility] 04-20-2022 13:11-0400 Systolic blood pressure 122 mm[Hg] PHYSICIAN NO [facility] 02-27-2022 13:27-0400 Body temperature 98.24 [degF] Romero Campos [facility] 02-27-2022 13:27-0400 Diastolic blood pressure 82 mm[Hg] Romero Campos [facility] 02-27-2022 13:27-0400 Heart rate 78 /min Romero aCmpos [facility] 02-27-2022 13:27-0400 Respiratory rate 20 /min Romero Campos [facility] 02-27-2022 13:27-0400 SaO2% (BldA) [Mass fraction] 99 % Romero Campos [facility] 02-27-2022 13:27-0400 Systolic blood pressure 121 mm[Hg] Romero Campos [facility] Encounters Encounter Date Encounter Type Care Provider Facility Start: 03-21-2024 End: 03-21-[address] [facility] Work Phone: Start: 03-21-2024 End: 03-21-2024 Patient encounter procedure [facility] Work Phone: Start: 10-19-2023 End: 10-19-2023 Emergency department patient visit PHYSICIAN NO FAMILY Facility:[facility] Start: 10-19-2023 End: 10-19-2023 Emergency department patient visit PHYSICIAN NO [facility] Work Phone: Start: 03-05-2023 End: 03-05-2023 Emergency department patient visit Romero Britton Facility[facility] Start: 03-05-2023 End: 03-05-2023 Emergency department patient visit Singh Preciado Facility:[facility] Start: 01-10-2023 End: 01-10-2023 ambulatory [facility] Facility:[facility] Start: 11-27-2022 End: 11-27-2022 ambulatory [facility] Facility:[facility] Start: 09-19-2022 End: 09-19-2022 Emergency department patient visit PHYSICIAN NO [facility] Start: 07-04-2022 End: 07-04-2022 Emergency department patient visit PHYSICIAN NO [facility] Start: 06-17-2022 End: 06-17-2022 ambulatory [place] Other [facility] [employer] Other Start: 06-17-2022 Office outpatient visit 15 minutes Jovanni Lake [facility] [address] Start: 04-20-2022 End: 04-20-2022 Emergency department patient visit PHYSICIAN NO FAMILY [facility] Start: 02-27-2022 End: 02-27-2022 Emergency department patient visit Romero Campos [facility] Procedures Date Procedure Procedure Detail Performing Clinician Start: 10-19-2023 Streptococcus pyogen es antigen assay PHYSICIAN NO FAMILY Start: 09-19-2022 Plain chest X-ray PHYSI MIREYA NO FAMILY Start: 07-04-2022 Plain chest X-ray PHYSI MIREYA NO FAMILY Start: 04-20-2022 X-ray of soft tissue of neck PHYSICIAN NO FAMILY SARS Antigen (LFIA) PHYSICIA N NO FAMILY Plan of Treatment Date Care Activity Detail Author Start: 10-19-2023 [facility] Patient Education [facility] Work Phone: Patient referral [facility] Work Phone: Payers Date Payer Category Payer Self-pay [id number] 2023 Unknown 2001 Unknown [id number] 2001 Unknown [id number] 2001 Unknown [id number] 1959 [place] [employer] [facility] [id number] 1958 Unknown [id number] 1959 Unknown [id number] Private Health Insurance [id number] Private Health Insurance [facility] [id number] Unknown [id number] Unknown [id number] Social History Date Type Detail Facility Tobacco smoking status [facility] Sex Assigned At Female [facility] Start: 07-04-2022 Tobacco smoking stat [facility] Never smoked tobacco (finding) [facility] Start: 2001 Sex Assigned At Female Ellen [facility] Start: 09-19-2022 End: 10-19-2023 Tobacco smoking status DCIS Smoker (finding) [facility] Evaluation note 06-17-2022 Note Date & Type Note Facility 06-17-2022 Evaluation note Encounter Date Diagnosis Assessment Notes Jun, Contact with and (suspected) exposure to other viral communicable diseases (ICD-10 - Z20.828) Jun, Viral infection (ICD-10 - B34.9) Drink plenty of fluids and get plenty of rest. If symptoms worsen or do not improve in 5-7 days, return to urgent care if you can not get in to see your pcp. May take tylenol or ibuprofen for fever and or discomfort. Covid PCR test is negative. Sign and symptoms consistent with viral uri.Will treat with fluticasone and lidocaine mouth wash. Given return precautions. [facility] Other Hospital Discharge instructions 02-27-2022 Note Date & Type Note Facility 02-27-2022 Hospital Discharg e instructions Patient Education 02/27/2022 14:34:46 How to Use Cold Therapy, [id number] How to Use Cold Therapy Cold therapy, or cryotherapy, is a treatment that uses cold temperatures to treat an injury or medical condition. It includes using cold packs or ice packs to reduce pain and swelling. Only use cold therapy if your doctor says it is okay. What are the risks? Generally, cold therapy is a safe treatment. However, it is not safe for: People who are not able to say they are in pain. These include small children and people who have memory problems. People who have certain conditions, such as: ?A problem in the vessels that slows blood flow to the fingers and toes (Raynaud's syndrome). ?Feeling very cold easily (cold hypersensitivity). ?Lack of feeling in the area being iced. Cold therapy may not be safe for people who have other conditions. Do not use it without talking to your doctor if you have: A heart condition. High blood pressure. Open or healing wounds. An infection. Pain and swelling in your joints (rheumatoid arthritis). Poor blood flow in the body. Diabetes. Certain skin conditions. How can I make a cold pack? When using a cold pack at home to reduce pain and swelling, you can use: A silica gel cold pack that has been left in the freezer. You can buy this online or in stores. A sealable plastic bag that has been filled with crushed ice. A washcloth or paper towels soaked in cold (or ice) water. A plastic bag of frozen vegetables. Throw them away when you are finished using them as a cold pack. Supplies needed: A cold pack. A towel. This can be dry or damp, based on what you like. How to use cold therapy 1.Have your cold pack ready. 2.Place a towel between the cold pack and your skin. You may also wrap the cold pack in a towel. 3.Put the cold pack on the affected area. Keep it on for no more than 20 minutes at a time. 4.Check your skin after 5 minutes to make sure that there is no damage to the area. Check for: White spots on your skin. Your skin may look blotchy or mottled. Skin that looks blue or pale. Skin that feels waxy or hard. 5.Repeat these steps as many times each day as told by your doctor. Always use a towel to avoid direct contact with your skin. Contact a doctor if: You start to have white spots on your skin. This may give your skin a blotchy or mottled look. Your skin turns blue or pale. Your skin becomes waxy or hard. Your swelling gets worse. Summary Cold therapy, or cryotherapy, is used to treat an injury or other conditions. It includes using cold packs or ice packs to reduce pain and swelling. Cold therapy is not safe for people who are not able to say they are in pain. When using cold packs or ice packs, always place a towel between the cold source and your skin. Check your skin after 5 minutes of icing it. This is to make sure that there is no skin damage. Contact your doctor if you notice changes in your skin or your swelling gets worse. This information is not intended to replace advice given to you by your health care provider. Make sure you discuss any questions you have with your health care provider. Document Released: 03/20/2009 Document Revised: 07/01/2019 Document Reviewed: 07/01/2019 [employer] Patient Education 2020 [employer]. 02/27/2022 14:34:46 Heat Therapy, [id number] Heat Therapy Heat therapy can help ease sore, stiff, injured, and tight muscles and joints. Heat relaxes your muscles, which may help ease your pain and muscle spasms. Do not use heat therapy unless your doctor tells you to use it. How to use heat therapy There are several different kinds of heat therapy, including: Moist heat pack. Hot water bottle. Electric heating pad. Heated gel pack. Heated wrap. Warm water bath. Your doctor will tell you how to use heat therapy. In general, you should: 1.Place a towel between your skin and the heat source. 2.Leave the heat on for 20 30 minutes. Your skin may turn pink. 3.Remove the heat if your skin turns bright red. You should remove the heat source if you are unable to feel pain, heat, or cold. You are more likely to get burned if you leave it on the skin for too long. Your doctor may also tell you to take a warm water bath. To do this: 1.Put a non-slip pad in the bathtub to prevent a fall. 2.Fill the bathtub with warm water. 3.Check the water temperature. 4.Soak in the water for 15 20 minutes, or as told by your doctor. 5.Be careful when you stand up after the bath. You may feel dizzy. 6.Pat yourself dry after the bath. Do not rub your skin to dry it. General recommendations for heat therapy Do not sleep while using heat therapy. Only use heat therapy while you are awake. Your skin may turn pink while using heat therapy. Do not use heat therapy if your skin turns red. Do not use heat therapy if you have a new injury. High heat or using heat for a long time can cause cruz. Be careful not to burn your skin when using heat therapy. Do not use heat therapy on areas of your skin that are already irritated, such as with a rash or sunburn. Get help if you have: Blisters, redness, swelling (puffiness), or numbness. New pain. Pain that is getting worse. Summary Heat therapy is the use of heat to help ease sore, stiff, injured, and tight muscles and joints. There are different types of heat therapy. Your doctor will tell you which one to use. Only use heat therapy while you are awake. Watch your skin to make sure you do not get burned while using heat therapy. This information is not intended to replace advice given to you by your health care provider. Make sure you discuss any questions you have with your health care provider. Document Released: 12/24/2012 Document Revised: 11/25/2019 Document Reviewed: 10/13/2018 [employer] Patient Education 2020 [employer]. 02/27/2022 14:34:46 Hand Pain Hand Pain Many things can cause hand pain. Some common causes are: An injury. Repeating the same movement with your hand over and over (overuse). Osteoporosis. Arthritis. Lumps in the tendons or joints of the hand and wrist (ganglion cysts). Nerve compression syndromes (carpal tunnel syndrome). Inflammation of the tendons (tendinitis). Infection. Follow these instructions at home: Pay attention to any changes in your symptoms. Take these actions to help with your discomfort: Managing pain, stiffness, and swelling Take yuob-mop-cvunrmp and prescription medicines only as told by your health care provider. Wear a hand splint or support as told by your health care provider. If directed, put ice on the affected area: ?Put ice in a plastic bag. ?Place a towel between your skin and the bag. ?Leave the ice on for 20 minutes, 2 3 times a day. Activity Take breaks from repetitive activity often. Avoid activities that make your pain worse. Minimize stress on your hands and wrists as much as possible. Do stretches or exercises as told by your health care provider. Do not do activities that make your pain worse. Contact a health care provider if: Your pain does not get better after a few days of self-care. Your pain gets worse. Your pain affects your ability to do your daily activities. Get help right away if: Your hand becomes warm, red, or swollen. Your hand is numb or tingling. Your hand is extremely swollen or deformed. Your hand or fingers turn white or blue. You cannot move your hand, wrist, or fingers. Summary Many things can cause hand pain. Contact your health care provider if your pain does not get better after a few days of self care. Minimize stress on your hands and wrists as much as possible. Do not do activities that make your pain worse. This information is not intended to replace advice given to you by your health care provider. Make sure you discuss any questions you have with your health care provider. Document Released: 10/28/2016 Document Revised: 06/28/2019 Document Reviewed: 06/28/2019 [employer] Patient Education [facility]. Follow Up Care 02/27/2022 13:19:15 With:LAILA GREGG Address: [facility] [employer] [address] Business (1) When:03/02/2022 14:27:13 Comments:Follow-up with your primary care provider. If symptoms worsen, do not improve, new symptoms arise please report back to emergency room immediately. Continue to rest, ice, compress, and elevate your hand to reduce swelling and inflammation of the area. You may take ibuprofen and/or Tylenol as needed for pain and to reduce inflammation. [facility] Evaluation + Plan note Note Date & Type Note Facility Evaluation + Plan note No data available for this section [facility] Evaluation note Note Date & Type Note Facility Evaluation note No assessment information availa ble [facility] Work Phone: Hospital Discharge instructions Note Date & Type Note Facility Hospital Discharge instructions Additional Instructions Quarantine per CDC guidelines Continue taking Tylenol 1000 mg every 4 hours and ibuprofen 600 mg every 6 hours for fever pain Increase oral fluids Follow-up with family doctor as needed Return to the ER for significant shortness of breath high fever despite medication vomiting or any other concerns [facility] Work Phone: Hospital Discharge instructions Note Date & Type Note Facility Hospital Discharge instructions Additional Instructions Follow-up with your primary care doctor Return to ED if develop worsening symptoms or concerns [facility] Work Phone: Chief Complaint and Reason for Visit Chief Complaint Throat Pain fever back pain Chief Complaint fever back pain Pain under R breast Chief Complaint sore throat Chief Complaint eye irritation Advance Directives Advance Directive Response Recorded Date/ Time Advance Directives No June 11:49am Advance Directive Response Recorded Date/ Time Advance Directives No June 10:49am Summary Purpose Family History No Family History Records FoundNo Family History Records FoundNo Family History Records Found Additional Source Comments REASON FOR VISIT (unrecogniz ed section and content) COVID EXPOSURE, CONGESTION, SORE THROAT, BODY ACHES, FATIGUE Care Teams (unrecognized sec tion and content) Team Status: Inactive Member Role Status Dates PHYSICIAN NO FAMILY Primary Care Provider Active 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 Team Status: Active Member Role Status Dates PHYSICIAN NO FAMILY Primary Care Provider Active Team Status: Inactive Member Role Status Dates PHYSICIAN NO FAMILY Primary Care Provider Active Chad Medeiros APRN Emergency Provider Active Team Status: Inactive Member Role Status Dates PHYSICIAN NO FAMILY Primary Care Provider Active Jorge Luis Lucio DO Emergency Provider Active Team Status: Inactive Member Role Status Dates PHYSICIAN NO FAMILY Primary Care Provider Active Start: March 21, 2024 End: March 21, 2024 [address] APRN Attending Provider Active Start: March 21, 2024 End: March 21, 2024 Goals (unrecognized section and content) Goals may be documented in a n alternate section INFORMATION SOURCE (unrecogn ized section and content) DATE CREATED AUTHOR 01/23/2023 John Alvarez [facility] DATE CREATED AUTHOR AUTHOR'S ORGANIZ ATION 05/18/2023 [facility] DATE CREATED AUTHOR AUTHOR'S ORGANIZ ATION 11/01/2023 [facility] FOR RECORDS PERTAINING TO PATIENTS WHO ARE OR HAVE BEEN ENROLLED IN A CHEMICAL DEPENDENCY/SUBSTANCEABUSE PROGRAM, SOME INFORMATION MAY BE OMITTED. This clinical summary was aggregated from multiple sources. Caution should be exercised in using it in the provision of clinical care. This summary normalizes information from multiple sources, and as a consequence, information in this document may materially change the coding, format and clinical context of patient data. In addition, data may be omitted in some cases. CLINICAL DECISIONS SHOULD BE BASED ON THE PRIMARY CLINICAL RECORDS. [facility]. provides no warranty or guarantee of the accuracy or completeness of information in this document.
--- NOTE | 2024-09-04 12:45 | ED_ITS ---
HPI HPI - General Adult General Chief complaint: Shortness of Breath/Dyspnea Stated complaint: SHORTNESS OF BREATH Time Seen by Provider: 09/04/24 11:47 Source: patient Mode of arrival: walk-in Limitations: no limitations History of Present Illness HPI narrative: Patient presents to ED complaining of cough and shortness of breath. Patient states that a coworker of hers was sick with strep throat and she started to get a scratchy throat but then it turned into more sinus congestion and a cough for her. Today she had a cough that was pretty severe and she was coughing up yellow phlegm. 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 She does report some head pressure and sinus pressure with the productive cough. She does have some wheezing on exam. No hypoxia and no fever. No history of asthma. Related Data Previous Rx's ?Medication ?Instructions ?Recorded albuterol sulfate 90 mcg/actuation 1 inh inhalation Q6H PRN shortness 09/04/24 aerosol inhaler of breath or wheezing #8.5 grams azithromycin 500 mg tablet See Rx Instructions PO .COMPLEX #3 09/04/24 (Zithromax TRI-NEVIN) tabs methylprednisolone 4 mg tablets in 4 mg PO DAILY #21 ea 09/04/24 a dose pack (Medrol (Nevin)) Allergies Allergy/AdvReac Type Severity Reaction Status Date / Time No Known Drug Allergies Allergy Verified 09/08/23 15:08 Opioid HPI Opioid Management Most Recent Opioid Data: No Data to Display Review of Systems ROS Status of ROS 10 or more systems reviewed and unremark able except as noted in history and below PFSH PFSH Social History Smoking status: Current every day smoker Little interest or pleasure in doing things: not at all Feeling down, depressed, or hopeless: not at all Exam Narrative Exam Narrative: Time Seen: [] Vital Signs: [Per nurse's notes.] General: [Alert] Skin: [Warm, dry, no rash.] Head: [Normocephalic, atraumatic.] Neck: [Supple, trachea midline.] Eye: [Pupils are equal, round and reactive to light, extraocular movements are intact, normal conjunctiva.] Ears, nose, mouth and throat: oral mucosa moist. Cardiovascular: [Regular rate and rhythm, no murmur.] Respiratory: Mild inspiratory expiratory wheezing bilaterally respirations are non-labored, breath sounds are equal.] Chest wall: [No tenderness, no deformity.] Gastrointestinal: [Soft, nontender, non distended, normal bowel sounds.] MSK: 5 out of 5 muscle strength x 4 extremities no calf pain or edema Lymphatics: [No lymphadenopathy.] Psychiatric: [Cooperative, appropriate mood & affect.] Neurological: [Alert and oriented to person, place, time, and situation, no focal neurological deficit observed.] Constitutional Vital Signs, click to edit/add: Last Vital Signs Temp 98.5 F 09/04/24 11:28 Pulse 78 09/04/24 12:30 Resp 18 09/04/24 12:30 BP 128/88 09/04/24 12:30 Pulse Ox 98 09/04/24 12:30 O2 Del Method Room Air 09/04/24 11:28 Course Vital Signs Vital signs: Vital Signs Temperature 98.5 F 09/04/24 11:28 Pulse Rate 85 09/04/24 11:28 Respiratory Rate 16 09/04/24 11:28 Blood Pressure 136/84 09/04/24 11:28 Pulse Oximetry 99 09/04/24 11:28 Oxygen Delivery Method Room Air 09/04/24 11:28 Temperature 98.5 F 09/04/24 11:28 Pulse Rate 78 09/04/24 12:30 Respiratory Rate 18 09/04/24 12:30 Blood Pressure 128/88 09/04/24 12:30 Pulse Oximetry 98 09/04/24 12:30 Oxygen Delivery Method Room Air 09/04/24 11:28 Medical Decision Making MDM Narrative Medical decision making narrative: Patient will be sent home with an albuterol inhaler, steroid taper and antibiotics for possible pneumonia based on clinical exam. Patient will be off work until Monday. Take the medications as directed return to ED if worsening symptoms. Follow-up with family doctor. Patient is comfortable with care plan for home. Differential Diagnosis Differential Diagnosis: Bronchitis, pneumonia, flu, COVID Lab Data Lab results reviewed: Yes I reviewed the patient's lab results Labs: Lab Results 09/04/24 Range/Units 11:35 Influenza Type A Ag Negative Influenza Type B Ag Negative SARS-CoV-2 Ag (CV2AG) Negative (NEGATIVE) Imaging Data Chest x-ray: Radiologist's impression: ITS Impressions Chest X-Ray 09/04/24 11:36 IMPRESSION: No acute cardiopulmonary process Electronically authenticated by: GRISELDA MARQUEZ Date: 09/04/2024 12:22 Discharge Plan Discharge Chief Complaint: Shortness of Breath/Dyspnea Clinical Impression: Community acquired pneumonia Patient Disposition: Home, Self-Care Time of Disposition Decision: 12:22 Condition: Good Mode of Transportation: Private Vehicle Prescriptions / Home Meds: New albuterol sulfate 90 mcg/actuation HFA aerosol inhaler 1 inh inhalation Q6H PRN (Reason: shortness of breath or wheezing) Qty: 8.5 0RF methylprednisolone [Medrol (Nevin)] 4 mg tablets,dose pack 4 mg PO DAILY Qty: 21 0RF azithromycin [Zithromax TRI-NEVIN] 500 mg tablet See Rx Instructions .ROUTE .COMPLEX Qty: 3 0RF Rx Instructions: For 250 mg dose pack: take 500 mg today (day 1), then 250 mg for 4 days (days 2-5) Print Language: Surinamese Instructions: Community Acquired Pneumonia (ED) Referrals: [facility] [Primary Care Provider] - 1 week Discharge Date/Time: 09/04/24 12:30
== END 2024-09-04 12:30 | disposition home or self-care (01) ==
PROVIDERS: Emergency Provider Emergency Medicine
DX: J18.9 Pneumonia, unspecified organism (principal)
CPT/HCPCS: 71046; 87502; 87804; 87811; 99284